=== PATIENT | male | born 1985 | race Caucasian/White ===

== ENCOUNTER 2021-10-28 18:49 | Emergency (ER) | payer OTHER, SELFPAY ==
[2021-10-28 18:54] VITALS: BP 126/80; PULSE 79; RESP 18; TEMP 37.2; O2SAT 99
--- NOTE | 2021-10-28 19:00 | DI.RAD_ITS ---
Exam(s) XR TOE RT FIFTH EXAM: XR TOE RT FIFTH CLINICAL HISTORY: foot trauma TECHNIQUE: COMPARISON: No exams were available for comparison FINDINGS: Three views were obtained. There is a mildly comminuted moderately displaced fracture of the distal aspect of the proximal phalanx of the 5th toe. No additional fracture seen. IMPRESSION: RADIATION DOSE DELIVERED: Total DLP
--- NOTE | 2021-10-28 19:14 | W.ED.GENAD ---
Discharge Plan Disposition Patient Disposition: HOME Condition: Stable Discharge Details Clinical Impression: Fracture of toe of right foot Primary Care Provider: None,None ED Provider: Ruel Lopez Discharge Instructions Instructions: Toe Fracture (ED) Additional Instructions: He may use [id number] pain medication such as acetaminophen or ibuprofen as needed for pain control. Please use postoperative shoe for the next 1 to 2 weeks and you may advance activity and weightbearing as tolerated. Please follow-up with your primary care provider for reassessment Referrals: Primary Care Provider [Outside] (1-2 weeks for recheck ) Medical Decision Making Patient presenting to the emergency department for chief complaint of right fifth toe injury. States catching it on something turning white. Patient denies any other injury or trauma. Physical exam shows deformity to the right fifth toe with tenderness to the proximal phalanx of the toe. Exam is otherwise unremarkable. We will perform radiological imaging for question of acute fracture versus dislocation Review of radiological imaging shows a fracture of the proximal phalanx of the fifth toe. There is able to easily reduce the toe and provide chery taping to the fourth toe no anesthesia was needed and patient tolerated procedure. Patient placed in postop shoe and recommended to follow-up with primary care provider when he returns home to call back. Imaging disc was provided as well. Patient recommended to use [id number] pain medication as needed for further discomfort. After discussion of diagnosis and plan of care patient has no further needs, questions, or concerns and states clear understanding to return to the emergency department for any worsening symptoms. This documentation was generated using [employer] dictation system, please disregard any oddities of phrase or misspellings. HPI General Mode of arrival: wheelchair. Date/Time Provider Initiated Documentation: 10/28/21 18:58. Limitations to Documentation: no limitations. Information obtained by: patient and RN notes reviewed. History of Present Illness 36 year old M presents to the emergency department with the chief complaint of right 5th toe injury, described as mild, Quality is described as aching, and is localized to the right and lower extremity. Patient reports no radiation. Patient started experiencing this hour(s) (1) and it has been constant. No relieving factors improve symptom(s), No exacerbating factors reported . Patient notes no other symptoms.. Patient did receive the following treatments prior to arrival, none Related Data Allergies Allergy/AdvReac Type Severity Reaction Status Date / Time No Known Allergies Allergy Unverified 10/28/21 18:57 General Stated Complaint: Orthopedic JUDY: 4 Review of Systems All systems reviewed & are unremarkable except as noted in HPI and below Musculoskeletal Musculoskeletal: Reports as per HPI and Reports deformity Neurologic Neurologic: Denies paresthesias PFSH All Active Problems (Updated 10/28/21 @ 19:56 by Ruel Lopez NP) Fracture of toe of right foot (Acute) Social History Smoking/Tobacco Use Status: Current every day Tobacco Type: cigarettes Smoking risk assessment performed?: Yes Alcohol Intake: current Alcohol Intake frequency: a few times a month Drug use: Occasionally Substance use type: marijuana Do you feel safe at home: Yes Do you feel safe in your relationship?: Yes Exam Const General: cooperative, no acute distress and not ill appearing Orientation: alert, awake and oriented x3 Resp Effort & Inspection: normal respiratory effort, able to speak in complete sentences and no respiratory distress Cardio Rate: regular rate Rhythm: regular rhythm Pulses: dorsalis pedis present Skin General skin exam: no rashes or lesions noted Neuro General: patient alert, patient awake, patient oriented x3, moves all extremities and no focal motor deficits Extrem General: normal exam except as noted Right lower extremity: foot Details: normal capillary refill, abnormal to inspection Details: a deformity Location: of the 5th digit; not erythematous, abnormal ROM of toe Details: pain with active ROM Location: of the 5th digit and motor-sensory exam Details: two point discrimination normal and light-touch normal; no abrasion and no laceration Course Vital Signs Vital signs: Vital Signs Temperature 37.2 C 10/28/21 18:54 Pulse 79 10/28/21 18:54 Respiratory Rate 18 10/28/21 18:54 Blood Pressure 126/80 10/28/21 18:54 Pulse Oximetry 99 10/28/21 18:54 Temperature 37.2 C 10/28/21 18:54 Temperature Source Temporal Artery Scan 10/28/21 18:54 Pulse 79 10/28/21 18:54 Respiratory Rate 18 10/28/21 18:54 Respiratory Effort Non-Labored 10/28/21 19:01 Blood Pressure 126/80 10/28/21 18:54 Blood Pressure Position Sitting 10/28/21 18:54 Pulse Oximetry 99 10/28/21 18:54 Oxygen Delivery Method Room Air 10/28/21 18:54 Oxygen Flow Rate 0 10/28/21 18:54
--- NOTE | 2021-10-28 19:55 | DI.VRAD_ITS ---
Addendum created by Minerva Ramirez MD on 10/28/2021 8:01:01 PM EDT: Two additional views have been provided. The 5th proximal phalangeal fracture demonstrates a mild apex dorsal angulation. Initial report created on 10/28/2021 7:54:47 PM EDT: PROCEDURE INFORMATION: Exam: XR Right Toe(s) Exam date and time: 10/28/2021 19:28 Age: 36 years old Clinical indication: Pain; Toes; Right; Patient HX: Foot trauma TECHNIQUE: Imaging protocol: Radiologic exam of the Right toes. Views: Minimum 2 views. COMPARISON: No relevant prior studies available. FINDINGS: Bones/joints: A frontal view only is available. Acute fracture of the 5th proximal phalangeal diaphysis without significant angulation on frontal imaging. Soft tissues: Digital soft tissue swelling. IMPRESSION: A frontal view only is available. Acute fracture of the 5th proximal phalangeal diaphysis without significant angulation on frontal imaging. Dictated and Authenticated by: Minerva Ramirez MD. Ordering:MYLES Lipscomb MD
== END 2021-10-28 20:39 | disposition home or self-care (01) ==
PROVIDERS: Emergency Provider Nurse Practitioner Family
DX: S92.511A Displaced fracture of proximal phalanx of right lesser toe(s), initial encounter for closed fracture (principal); X50.1XXA Overexertion from prolonged static or awkward postures, initial encounter
CPT/HCPCS: 99283; 73660